=== PATIENT | male | born 1955 | race Caucasian/White ===

== ENCOUNTER 2021-10-05 10:58 | Emergency (ER) | payer OTHER, SELFPAY ==
[2021-10-05] VITALS (21 sets, daily range): BP systolic 129–183; BP diastolic 67–115; PULSE 59–75; RESP 13–23; TEMP 36.6; O2SAT 98–100; BMI 27.6
--- NOTE | 2021-10-05 11:29 | DI.MRI.S_ITS ---
PROCEDURE: MR HEAD/BRAIN WO/W CON INDICATIONS: acute vertigo TECHNIQUE: Noncontrast axial T1 spin echo, axial T2 fast spin echo, sagittal and axial FLAIR, coronal T2 fast spin echo, axial gradient echo, axial diffusion and ADC through the brain. After the administration of contrast, axial and coronal 3D VIBE or T1 spin echo with fat saturation through the brain. COMPARISON: None. FINDINGS: Image quality: Excellent. CSF Spaces: Basal cisterns are patent. No extra-axial fluid collections. Ventricles are normal in size and shape. Brain: No midline shift. No intracranial bleeds or masses. No abnormal intracranial enhancement. The brainstem appears normal. Diffusion-weighted images demonstrate no acute ischemic insults. No chronic ischemic insults. Normal intravascular flow voids are present. Skull and face: Calvarial marrow is normal in signal. Orbits appear normal. Sinuses: Sinuses demonstrate mucous retention cyst versus polyp in the right maxillary sinus. IMPRESSION: 1. No acute intracranial process. Dictated by: Mechelle Ortiz M.D. on 10/05/2021 at 16:54 Approved by: Mechelle Ortiz M.D. on 10/05/2021 at 16:55
--- NOTE | 2021-10-05 11:32 | PC.NURSE ---
Pt reports an episode of dizziness while chain sawing this morning. He reports being unable to stand up then being nauseated and vomiting. Pt denies chest pain, SOB, recent illness, or change in medication. Pt reports similar episode 4 years ago due to hyperthyroidism. States, laying still makes it a bit better, movement makes is worse.
[2021-10-05 11:36] LABS: Add Manual Diff / Slide Review NO; Basophils Absolute Auto 0 /uL (0-100); Basophils Percent Auto 0.3 % (0-2); Eosinophils Absolute Auto 100 /uL (0-450); Eosinophils Percent Auto 1.1 % (2-4); Hematocrit 45.3 % (41-53); Hemoglobin 15.4 g/dL (13.5-17.5); Lymphocytes Absolute Auto 1600 /uL (1100-4500); Lymphocytes Percent Auto 24.4 % (25-40); Mean Corpuscular Hemoglobin 30.9 PG (26-34); Monocytes Absolute Auto 700 /uL (0-900); Neutrophils Absolute Auto 4100 /uL (1500-7000); Neutrophils Percent Auto 63.2 % (50-75); Platelet Count 254 X10^3/uL (150-400); Red Blood Cell Count 4.98 X10^6/uL (4.5-5.9); Red Cell Distribution Width 13.4 % (11.6-14.8); White Blood Cell Count 6.5 X10^3/uL (4.5-11.0)
--- NOTE | 2021-10-05 11:37 | ED_ITS ---
HPI - General Adult General Chief complaint: Dizziness Stated complaint: Sudden onset of dizziness Time Seen by Provider: 10/05/21 11:10 Source: patient, family and EMS Mode of arrival: EMS History of Present Illness HPI narrative: 65-year-old gentleman with a history of hyperlipidemia no hypertension who was outside today beginning to chain saw logs had just started the process when he stood up and had the acute onset of vertigo significant enough that he felt that he was going to fall. He had an episode of emesis and did feel better but still complaining of severe vertigo. He notes that 4 years ago he had a diagnosis of thyroiditis and was diagnosed with vertigo and nausea was hyperthyroid and is now hypothyroid on thyroid replacement. Describes minimal dizziness with head movement certainly not having nystagmus or symptoms consistent with benign positional vertigo. He describes ?jumpy? vision but not actually decreased. Complains of mild diaphoresis but no chest pain, orthopnea, dyspnea. He was positive for COVID 2 months ago and his was positive for COVID about 2 weeks ago. He has no significant complaints persisting from that. He notes occasionally he wakes up with a irritated throat that goes away rather quickly and he has attributed that to allergies. Reports intermittent episodes of chronic diarrhea for a number of years that has not gotten particularly worse. Related Data Home Medications Medication Instructions Recorded Confirmed pitavastatin calcium [Livalo] PO 07/13/18 07/13/18 Previous Rx's Medication Instructions Recorded amoxicillin 500 mg capsule 500 mg PO BID #20 caps 07/13/18 Allergies Allergy/AdvReac Type Severity Reaction Status Date / Time No Known Drug Allergies Allergy Verified 07/13/18 17:43 Review of Systems Review of Systems Narrative: Remainder of complete review of systems is otherwise unremarkable except for that included in the HPI. Patient History Medical History (Updated 10/05/21 @ 18:08 by Nikki Trevino MD) Hyperlipidemia Thyroiditis Social History Smoking Status: Never smoker Smoking Status: Never smoker alcohol intake frequency: 0-2 drinks per day Substance Use Type: does not use Exam Initial Vital Signs Initial Vital Signs: Vital Signs Pulse Rate 66 10/05/21 11:02 Pulse Oximetry 98 10/05/21 11:02 General: Healthy appearing, mildly diaphoretic but otherwise in no acute distress. Able to give a complete and coherent history. Well-nourished well- developed HEENT: Moist mucous membranes, normal sclera with reactive pupils, no nystagmus with positional changes. Tympanic membranes are pearly catherine bilaterally Neck: No JVD, supple, no cervical adenopathy Respiratory: Lungs are clear to auscultation, no wheezing no rales no rhonchi. Full and symmetrical air movement Cardiac: Regular rate and rhythm no murmurs no bruits Abdomen: Soft, nontender, good bowel tones, no flank pain Skin: Warm and dry, no rashes Neurologic: Grossly neurologically intact with no obvious asymmetries or abnormalities. Reports of vertigo when sitting up, again no nystagmus.= No tinnitus. NIH=0 Extremities: No trauma, well perfused Psych: Cooperative, appropriate insight and affect Course Orders Ordered: ED Orders 10/05/21 11:00 Complete Blood Count AUTO DIFF Stat Comprehensive Metabolic Panel Stat Troponin I Stat 10/05/21 11:29 MR head/brain wo/w con Stat Discontinued Medications Acetaminophen (Acetaminophen 325 Mg Tablet) 975 mg PO NOW ONE Stop: 10/05/21 13:19 Last Admin: 10/05/21 13:41 Dose: 975 mg Documented By: SB Diphenhydramine HCl (Diphenhydramine 50 Mg/Ml Vial) 25 mg IV NOW ONE Stop: 10/05/21 13:19 Last Admin: 10/05/21 13:42 Dose: 25 mg Documented By: SB Metoclopramide HCl (Metoclopramide 10 Mg/2 Ml Inj) 10 mg IV NOW ONE Stop: 10/05/21 13:19 Last Admin: 10/05/21 13:42 Dose: 10 mg Documented By: SB Ondansetron HCl (Ondansetron 4 Mg/2 Ml Inj) 4 mg IV NOW ONE Stop: 10/05/21 11:35 Last Admin: 10/05/21 11:38 Dose: 4 mg Documented By: SB Vital Signs Vital signs: Vital Signs - 8 hr 10/05/21 11:07 10/05/21 11:02 10/05/21 11:03 Temperature 97.8 F Pulse Rate 68 66 Respiratory Rate 20 Blood Pressure 170/97 H 170/92 H Pulse Oximetry 99 98 Oxygen Delivery Method Room Air 10/05/21 11:03 10/05/21 11:06 10/05/21 11:06 Temperature Pulse Rate 63 63 Respiratory Rate Blood Pressure 167/99 H Pulse Oximetry 98 Oxygen Delivery Method 10/05/21 11:12 10/05/21 11:12 10/05/21 11:30 Temperature Pulse Rate 64 59 L Respiratory Rate 17 16 Blood Pressure 183/98 H Pulse Oximetry 99 99 Oxygen Delivery Method 10/05/21 11:31 10/05/21 11:31 10/05/21 12:00 Temperature Pulse Rate 59 L Respiratory Rate 15 Blood Pressure 148/79 H 160/79 H Pulse Oximetry 99 Oxygen Delivery Method 10/05/21 12:00 10/05/21 12:30 10/05/21 12:31 Temperature Pulse Rate 59 L 62 Respiratory Rate 17 13 Blood Pressure 150/67 H Pulse Oximetry 99 98 Oxygen Delivery Method Room Air 10/05/21 12:31 10/05/21 13:00 10/05/21 13:00 Temperature Pulse Rate 59 L 67 Respiratory Rate 13 19 Blood Pressure 163/79 H Pulse Oximetry 99 100 Oxygen Delivery Method 10/05/21 13:30 10/05/21 13:30 10/05/21 14:00 Temperature Pulse Rate 63 Respiratory Rate 16 Blood Pressure 158/80 H 159/115 H Pulse Oximetry 99 Oxygen Delivery Method 10/05/21 14:00 10/05/21 14:01 10/05/21 14:01 Temperature Pulse Rate 75 73 Respiratory Rate Blood Pressure 159/115 H Pulse Oximetry 99 99 Oxygen Delivery Method 10/05/21 14:09 10/05/21 14:09 10/05/21 14:30 Temperature Pulse Rate 69 Respiratory Rate 23 Blood Pressure 149/84 H 151/72 H Pulse Oximetry 99 Oxygen Delivery Method 10/05/21 14:30 10/05/21 15:00 10/05/21 15:00 Temperature Pulse Rate 63 61 Respiratory Rate 19 13 Blood Pressure 139/68 Pulse Oximetry 99 99 Oxygen Delivery Method 10/05/21 15:30 10/05/21 15:30 10/05/21 16:00 Temperature Pulse Rate 60 68 Respiratory Rate 13 19 Blood Pressure 129/70 Pulse Oximetry 99 98 Oxygen Delivery Method 10/05/21 16:01 10/05/21 16:01 10/05/21 18:15 Temperature Pulse Rate 67 60 Respiratory Rate 17 Blood Pressure 158/70 H 175/86 H Pulse Oximetry 98 99 Oxygen Delivery Method Room Air Medical Decision Making Lab Data Result diagrams: 10/05/21 11:00 10/05/21 11:00 Labs: Lab Results 10/05/21 10/05/21 Range/Units 11:00 11:00 WBC 6.5 (4.5-11.0) X10^3/uL RBC 4.98 (4.5-5.9) X10^6/uL Hgb 15.4 (13.5-17.5) g/dL Hct 45.3 (41-53) % MCV 91.0 (80-100) fL MCH 30.9 (26-34) PG MCHC 34.0 (30-36) % RDW 13.4 (11.6-14.8) % Plt Count 254 (150-400) X10^3/uL Neut % (Auto) 63.2 (50-75) % Lymph % (Auto) 24.4 L (25-40) % [place] % (Auto) 11.0 (3-14) % Eos % (Auto) 1.1 L (2-4) % Baso % (Auto) 0.3 (0-2) % Neut # (Auto) 4100 (4714-4062) /uL Lymph # (Auto) 1600 (5902-9281) /uL [place] # (Auto) 700 (0-900) /uL Eos # (Auto) 100 (0-450) /uL Baso # (Auto) 0 (0-100) /uL Sodium 141 (137-145) mmol/L Potassium 4.2 (3.4-5.1) mmol/L Chloride 104 (98-107) mmol/L Carbon Dioxide 28 (22-32) mmol/L BUN 21 H (9-20) mg/dL Creatinine 0.94 (0.66-1.25) mg/dL Estimated GFR > 60 (>60) mL/min BUN/Creatinine Ratio 22.3 H (6-22) Glucose 147 H (80-110) mg/dL Calcium 9.8 (8.4-10.2) mg/dL Total Bilirubin 0.6 (0.2-1.3) mg/dL AST 45 (17-59) IU/L ALT 39 (<50) IU/L Alkaline Phosphatase 50 (38-126) U/L Troponin I < 0.012 (0.01-0.034) ng/mL Total Protein 8.4 H (6.3-8.2) g/dL Albumin 4.8 (3.5-5.0) g/dL Globulin 3.6 (1.7-4.1) g/dL Albumin/Globulin Ratio 1.3 (1.0-2.8) Imaging Data MRI brain: Radiologist's Impression: FINDINGS:? Image quality:? Excellent.? ? CSF Spaces:? Basal cisterns are patent.? No extra-axial fluid collections.? Ventricles are normal in size and shape.? ? Brain:? No midline shift.? No intracranial bleeds or masses.? No abnormal intracranial enhancement.? The brainstem appears normal.? Diffusion-weighted images demonstrate no acute ischemic insults.? No chronic ischemic insults.? Normal intravascular flow voids are present.? ? Skull and face:? Calvarial marrow is normal in signal.? Orbits appear normal.? ? Sinuses:? Sinuses demonstrate mucous retention cyst versus polyp in the right maxillary sinus. ? IMPRESSION:? ? 1. No acute intracranial process. ? ? Dictated by: Mechelle Ortiz M.D. on 10/05/2021 at 16:54? ?? ECG Data Interpretation: Sinus rhythm at a rate of 63 Normal intervals, normal axis No acute ischemic changes MDM Narrative Medical decision making narrative: 65-year-old gentleman with acute onset severe vertigo to the point he had difficulty standing. Initial lab workup is reassuring with no evidence of acute coronary syndrome or electrolyte abnormalities. There is still a concern for posterior distribution stroke and an MRI has been ordered. This is scheduled for 530 this evening. In the meantime he is complaining that his headache is getting slightly worse. Will give him Tylenol, IV Reglan IV Benadryl and re-evaluate. He is updated with all findings and aware of timing for MRI. 6pm patient's headache has resolved. His MRI is reassuring. All of this is reviewed with him. At this point I do not have any life-threatening explanation to explain the acute vertigo and headache earlier today. I did recommend that he consider having large glass of water prior to outside activity. Reviewed with him signs and symptoms of stroke when to return to the emergency department, reassurance is given and he is safe for home discharge Discharge Plan Departure Patient Disposition: Home Clinical Impression: Vertigo, Headache Instructions: JULIANNE for Vertigo Activity Restrictions/Additional Instructions: Thank you for coming in today Your blood work was very reassuring. We did end up doing an MRI of your brain and it too was reassuring. There is no evidence of stroke or blood flow abnormalities to the cerebellum, the back part of your brain that can cause acute dizziness. I suspect that this may have been related to mild dehydration associated with the activity outside. At this time, I am quite reassured, there is no life-threatening explanation for your symptoms and her symptoms seem to be improved. It is safe for you to go home If you find that you are getting worse or develop any new symptoms, please feel free to return to the emergency department for further evaluation. Prescriptions: No Action pitavastatin calcium PO amoxicillin 500 mg capsule 500 mg PO BID Qty: 20 0RF Referrals: Bee Murphy PA-C [Primary Care Provider] - Visit Report Forms: Patient Portal/API
[2021-10-05] MEDS: ONDANSETRON 4 MG/2 ML INJ IV (11:38)
[2021-10-05 11:42] LABS: Alanine Aminotransferase 39 IU/L (<50); Albumin 4.8 g/dL (3.5-5.0); Albumin Globulin Ratio 1.3 (1.0-2.8); Alkaline Phosphatase 50 U/L (38-126); Aspartate Aminotransferase 45 IU/L (17-59); BUN Creatinine Ratio 22.3 (6-22); Bilirubin Total 0.6 mg/dL (0.2-1.3); Blood Urea Nitrogen 21 mg/dL (9-20); Calcium 9.8 mg/dL (8.4-10.2); Carbon Dioxide 28 mmol/L (22-32); Chloride 104 mmol/L (98-107); Estimated Glomerular Filt Rate > 60 mL/min (>60); Globulin 3.6 g/dL (1.7-4.1); Glucose 147 mg/dL (80-110); HEMOLYSIS < 15 (0-50); Potassium 4.2 mmol/L (3.4-5.1); Sodium 141 mmol/L (137-145); Total Protein 8.4 g/dL (6.3-8.2)
[2021-10-05 11:53] LABS: Troponin I < 0.012 ng/mL (0.01-0.034)
[2021-10-05] MEDS: ACETAMINOPHEN 325 MG TABLET 975 MG PO (13:41)
[2021-10-05] MEDS: METOCLOPRAMIDE 10 MG/2 ML INJ IV (13:42)
[2021-10-05] MEDS: diphenhydrAMINE 50 MG/ML VIAL 25 MG IV (13:42)
== END 2021-10-05 18:16 | disposition home or self-care (01) ==
PROVIDERS: Emergency Provider Emergency Medicine; PCP Physician Assistant
DX: R42 Dizziness and giddiness (principal); R51.9 Headache, unspecified; Z86.16 Personal history of COVID-19
CPT/HCPCS: 70553; 80053; 84484; 85025; 93005; 93010; 96374; 96375; 99284; J1200; J2405; J2765

== ENCOUNTER 2023-09-30 11:08 | Emergency (ER) | payer MEDICARE, OTHER, SELFPAY ==
[2023-09-30 11:18] VITALS: BP 178/88; PULSE 74; RESP 20; TEMP 36.7; O2SAT 97; BMI 27.1
--- NOTE | 2023-09-30 13:10 | ED_ITS ---
HPI - Extremity Problem General Chief complaint: Extremity Problem,Nontraumatic Stated complaint: Right Arm swelling, Time Seen by Provider: 09/30/23 12:56 Source: patient Mode of arrival: Ambulatory History of Present Illness HPI Narrative: 67-year-old male with history of hypertension, hyperlipidemia and gout of his right hand for the past 10 days or so. He had been seen and evaluated by his primary care provider and started on colchicine and a course of steroids and had little to no improvement. He subsequently followed up at an urgent care at [facility] and had an x-ray that showed no significant findings. He has continued pain and swelling in his right hand but also is now having pain, redness and swelling of his right elbow. This is all in the absence of any injury or overuse. He denies fever or chills nor nausea, vomiting or diarrhea. He denies any numbness or tingling. He denies any history of clot, recent travel or other Related Data Home Medications Medication Instructions Recorded Confirmed pitavastatin calcium [Livalo] PO 07/13/18 07/13/18 Previous Rx's Medication Instructions Recorded amoxicillin 500 mg capsule 500 mg PO BID #20 caps 07/13/18 doxycycline hyclate 100 mg tablet 100 mg PO BID #20 tabs 09/30/23 Allergies Allergy/AdvReac Type Severity Reaction Status Date / Time No Known Drug Allergies Allergy Verified 09/30/23 11:25 Review of Systems Review of Systems Narrative: GENERAL: Denies chills, fatigue, malaise, fever, sweats. HEENT: Denies sinus pain, ear pain, sore throat, difficulty swallowing, dizziness. RESPIRATORY: Denies dyspnea, cough, wheezing, hemoptysis, sputum. CARDIOVASCULAR: Denies chest pain, palpitations, orthopnea, edema, GASTROINTESTINAL: Denies nausea, vomiting, abdominal pain, diarrhea, constipation, melena. : Denies dysuria, frequency, incontinence, hematuria, urinary retention. MUSCULOSKELETAL: See HPI SKIN: See HPI NEUROLOGIC: Denies weakness, headache, numbness, change in speech, confusion, seizures, incoordination. PSYCHIATRIC: No concerning psychosocial issues. 12 point review of systems is negative except for those stated above Patient History Medical History Hyperlipidemia Thyroiditis Social History (Reviewed 06/09/24 @ 13:39 by NEGRO Hinds Smoking Status: Never smoker Smoking Status: Never smoker alcohol intake frequency: 0-2 drinks per day Substance Use Type: does not use Exam Narrative Exam Narrative: GENERAL: [67] year old patient appears stated age. Well-developed patient, in mild distress. HEAD: Atraumatic. Normocephalic. EYES: Pupils equal round and reactive. Extraocular motions intact. No scleral icterus. No injection or drainage. ENT: Nose without bleeding, purulent drainage. Throat without erythema, tonsillar hypertrophy or exudate. Airway patent. NECK: Trachea midline. Non tender CARDIOVASCULAR: Regular rate and rhythm without murmurs, gallops, or rubs. RESPIRATORY: Clear to auscultation. Breath sounds equal bilaterally. No wheezes, rales, or rhonchi. GASTROINTESTINAL: Abdomen soft, non-tender, nondistended. EXTREMITIES: Dorsum of right hand with some redness erythema, warmth and swelling, cap refill and sensation intact, no fluctuance or induration, no pain with palpation of palmar surface. Full range of motion at the wrist. Forearm compartments are soft and free of any pain, redness or swelling, no lymphangitis is noted, at the elbow overlying the olecranon there is erythema and warmth with pain on range of motion, this erythema is not circumferential. He does have relatively decent range of motion suggesting septic arthritis extremely unlikely. No lymphangitis from this point, no axillary nodes noted. BACK: Nontender without deformity or crepitance. No flank tenderness. NEURO: AOx3. SKIN: No rash or erythema of visible areas Initial Vital Signs Initial Vital Signs: Vital Signs Temperature 98.1 F 09/30/23 11:18 Pulse Rate 74 09/30/23 11:18 Respiratory Rate 20 09/30/23 11:18 Blood Pressure 178/88 H 09/30/23 11:18 Pulse Oximetry 97 09/30/23 11:18 Oxygen Delivery Method Room Air 09/30/23 11:18 Course Orders Ordered: ED Orders 09/30/23 13:25 US periph venous up extrem rt Stat 09/30/23 13:44 C-Reactive Protein Quant Stat Complete Blood Count AUTO DIFF Stat Comprehensive Metabolic Panel Stat Erythrocyte Sedimentation Rate Stat Uric Acid Stat Discontinued Medications Sodium Chloride (Normal Saline 0.9%) 500 mls @ 1,000 mls/hr IV BOLUS ONE Stop: 09/30/23 13:54 Last Infusion: 09/30/23 14:30 Dose: Infused Documented By: Admin: 09/30/23 13:53 Dose: 1,000 mls/hr Documented By: IGOR Doxycycline Hyclate 100 mg/ (Sodium Chloride) 100 mls @ 100 mls/hr IV NOW ONE Stop: 09/30/23 14:58 Last Admin: 09/30/23 15:11 Dose: 100 mls/hr Documented By: IGOR Ketorolac Tromethamine (Ketorolac 30 Mg/Ml Vial) 15 mg IV NOW ONE Stop: 09/30/23 13:26 Last Admin: 09/30/23 13:50 Dose: 15 mg Documented By: IGOR Vital Signs Vital signs: Vital Signs - 8 hr 09/30/23 11:18 Temperature 98.1 F Pulse Rate 74 Respiratory Rate 20 Blood Pressure 178/88 H Pulse Oximetry 97 Oxygen Delivery Method Room Air MDM - Extremity (Nontraumatic) Lab Data 09/30/23 13:44 09/30/23 13:44 Labs: Lab Results 09/30/23 Range/Units 13:44 WBC 11.3 H (4.5-11.0) X10^3/uL RBC 4.88 (4.5-5.9) X10^6/uL Hgb 15.2 (13.5-17.5) g/dL Hct 45.2 (41-53) % MCV 92.5 (80-100) fL MCH 31.1 (26-34) PG MCHC 33.7 (30-36) % RDW 13.9 (11.6-14.8) % Plt Count 258 (150-400) X10^3/uL Neut % (Auto) 78.4 H (50-75) % Lymph % (Auto) 10.5 L (25-40) % [place] % (Auto) 9.5 (3-14) % Eos % (Auto) 1.1 L (2-4) % Baso % (Auto) 0.5 (0-2) % Neut # (Auto) 8800 H (2034-5317) /uL Lymph # (Auto) 1200 (7104-5554) /uL [place] # (Auto) 1100 H (0-900) /uL Eos # (Auto) 100 (0-450) /uL Baso # (Auto) 100 (0-100) /uL ESR 29 H (0-15) MM/HR Sodium 140 (137-145) mmol/L Potassium 4.2 (3.4-5.1) mmol/L Chloride 106 (98-107) mmol/L Carbon Dioxide 28 (22-32) mmol/L BUN 22 H (9-20) mg/dL Creatinine 0.92 (0.66-1.25) mg/dL Estimated GFR > 60 (>60) mL/min BUN/Creatinine Ratio 23.9 H (6-22) Glucose 168 H (80-110) mg/dL Uric Acid 6.2 (3.5-8.5) mg/dL Calcium 9.4 (8.4-10.2) mg/dL Total Bilirubin 0.5 (0.2-1.3) mg/dL AST 32 (17-59) IU/L ALT 27 (<50) IU/L Alkaline Phosphatase 57 (38-126) U/L C-Reactive Protein 6.8 H (<1.0) mg/dL Total Protein 7.7 (6.3-8.2) g/dL Albumin 4.3 (3.5-5.0) g/dL Globulin 3.4 (1.7-4.1) g/dL Albumin/Globulin Ratio 1.3 (1.0-2.8) MDM Narrative Medical decision making narrative: CC: Right hand pain, redness, swelling and right elbow pain, redness and swelling Complicating co-morbidities: age, history of gout Data collected from: Patient Medical records reviewed: Prior notes reviewed in our EMR Differential considered, but not limited to: Gouty arthritis versus cellulitis versus DVT versus septic arthritis versus bursitis versus other Exam documented above, pertinent findings include: Right hand pain, redness and swelling in the absence of injury, no fluctuance or induration, no palmar pain to suggest deep space infection. Right elbow with pain, redness and some swelling overlying the olecranon, this is not circumferential and patient has intact range of motion with flexion and extension as well as pronation and supination Lab Test results independently reviewed as above. Pertinent findings: Leukocytosis with relative left shift, inflammatory markers elevated. Uric acid in normal range Imaging studies independently reviewed: Ultrasound shows no evidence of DVT, there is a loose fluid collection over the elbow, clinically there is no fluctuation or induration, no indication that incision and drainage is indicated. Treatments: IV fluids, Toradol and doxycycline Re-evaluations: Patient feeling quite well and ready for discharge Discussion: Patient with right hand and elbow pain, swelling and redness in the absence of injury. He does have a history of gout and had been treated for upwards of a week with colchicine without any improvement, historically this provides near immediate resolution of symptoms for him. Other diagnoses considered including cellulitis versus DVT, thankfully ultrasound obtained and shows no evidence of clot. Patient started on antibiotics here and prescription sent to his pharmacy of choice. Return precautions discussed and patient encouraged to follow closely with his primary care office. Disposition: see below, along with detailed discharge instructions that have been reviewed with patient as well as indications for ED re-evaluation and additional outpatient follow up Discharge Plan Departure Patient Disposition: Home Clinical Impression: Cellulitis of hand, right, Cellulitis of right elbow Instructions: DI for Cellulitis -- Adult Activity Restrictions/Additional Instructions: *You have been diagnosed with [Right hand and elbow cellulitis ] *What to do: *Please continue to take your regular medications as directed. [x ] New medication prescriptions sent to your pharmacy: [ [facility]) [ ] New medication written as a paper prescription [ ] No new medications given *Please follow up with your primary care provider in 2-3 days, call for an appointment. Let them know you were seen in the Emergency Department and that we ask that you be seen in follow up. We will electronically transmit a record of today's note if your PCP is in our system *If you do not have a primary care provider please contact the [facility] Resource line at [phone]. They will ask some questions about your medical history and help get you set up with a doctor in the community. *Return to Emergency Department if you should have any new, worsening or concerning symptoms, such as [fever greater than 101 F, shaking chills, worsening pain, persistent vomiting or other bothersome symptoms] Prescriptions: New doxycycline hyclate 100 mg tablet 100 mg PO BID Qty: 20 0RF No Action pitavastatin calcium PO amoxicillin 500 mg capsule 500 mg PO BID Qty: 20 0RF Stand Alone Forms: Patient Portal/API
--- NOTE | 2023-09-30 13:25 | DI.US.S_ITS ---
PROCEDURE: US PERIPH VENOUS UP EXTREM RT INDICATIONS: pain, swelling, redness. No injury TECHNIQUE: Real-time imaging, as well as color and pulse Doppler interrogation, was performed of the upper extremity deep veins from the inferior neck to the antecubital fossa. COMPARISON: [facility], CR, XR ELBOW 3+ VIEWS RIGHT, 09/25/2023, 15:45. FINDINGS: The internal jugular vein, visualized portions of the subclavian vein, axillary, and brachial veins are free of intraluminal thrombus. Where physically possible, the veins are normally compressible. Color and pulse Doppler demonstrate normal intraluminal flow, with expected phasicity and pulsatility. Additional scanning of the cephalic and basilic veins of the superficial system demonstrates normal compressibility, without thrombus. Inferior to the right elbow, there is a focus complex fluid with internal debris measuring 10 x 11 x 5 mm. No abnormal vascularity can be seen. There is edema seen at the level of the hand, without abnormal vascularity. IMPRESSION: No findings of upper extremity deep venous thrombosis can be seen. Complex fluid seen inferior to the elbow, measuring up to 11 mm, which may be related to a hematoma. No abnormal vascularity can be seen. Hand soft tissue edema can be seen. Dictated by: Kendrick Royal M.D. on 09/30/2023 at 14:16 Approved by: Kendrick Royal M.D. on 09/30/2023 at 14:17
[2023-09-30] MEDS: KETOROLAC 30 MG/ML VIAL 15 MG IV (13:50)
[2023-09-30] MEDS: SODIUM CHLORIDE 0.9% 500 ML 1000 ML IV (13:53)
[2023-09-30 14:01] LABS: Add Manual Diff / Slide Review NO; Basophils Absolute Auto 100 /uL (0-100); Basophils Percent Auto 0.5 % (0-2); Eosinophils Absolute Auto 100 /uL (0-450); Eosinophils Percent Auto 1.1 % (2-4); Hematocrit 45.2 % (41-53); Hemoglobin 15.2 g/dL (13.5-17.5); Lymphocytes Absolute Auto 1200 /uL (1100-4500); Lymphocytes Percent Auto 10.5 % (25-40); Mean Corpuscular HGB Conc 33.7 % (30-36); Mean Corpuscular Hemoglobin 31.1 PG (26-34); Mean Corpuscular Volume 92.5 fL (80-100); Monocytes Absolute Auto 1100 /uL (0-900); Monocytes Percent Auto 9.5 % (3-14); Neutrophils Absolute Auto 8800 /uL (1500-7000); Neutrophils Percent Auto 78.4 % (50-75); Platelet Count 258 X10^3/uL (150-400); Red Blood Cell Count 4.88 X10^6/uL (4.5-5.9); Red Cell Distribution Width 13.9 % (11.6-14.8); White Blood Cell Count 11.3 X10^3/uL (4.5-11.0)
[2023-09-30 14:11] LABS: Uric Acid 6.2 mg/dL (3.5-8.5)
[2023-09-30 14:13] LABS: Alanine Aminotransferase 27 IU/L (<50); Albumin 4.3 g/dL (3.5-5.0); Albumin Globulin Ratio 1.3 (1.0-2.8); Alkaline Phosphatase 57 U/L (38-126); Aspartate Aminotransferase 32 IU/L (17-59); BUN Creatinine Ratio 23.9 (6-22); Bilirubin Total 0.5 mg/dL (0.2-1.3); Blood Urea Nitrogen 22 mg/dL (9-20); C-Reactive Protein Quant 6.8 mg/dL (<1.0); Calcium 9.4 mg/dL (8.4-10.2); Carbon Dioxide 28 mmol/L (22-32); Chloride 106 mmol/L (98-107); Estimated Glomerular Filt Rate > 60 mL/min (>60); Globulin 3.4 g/dL (1.7-4.1); Glucose 168 mg/dL (80-110); HEMOLYSIS 17 (0-50); Potassium 4.2 mmol/L (3.4-5.1); Sodium 140 mmol/L (137-145); Total Protein 7.7 g/dL (6.3-8.2)
[2023-09-30 14:39] LABS: Erythrocyte Sedimentation Rate 29 MM/HR (0-15)
[2023-09-30] MEDS: DOXYCYCLINE 100 MG in SODIUM CHLORIDE 0.9% 100 ML IV (15:11)
[2023-09-30 16:18] VITALS: BP 166/96; PULSE 72; RESP 18; O2SAT 98
== END 2023-09-30 16:20 | disposition home or self-care (01) ==
PROVIDERS: Emergency Medicine; Emergency Provider Emergency Medicine
DX: L03.113 Cellulitis of right upper limb (principal)
CPT/HCPCS: 36415; 80053; 84550; 85025; 85651; 86140; 93971; 96365; 96375; 99284; J1885

== ENCOUNTER 2025-01-15 09:45 | Outpatient (RCR) | payer MEDICARE, OTHER, SELFPAY ==
--- NOTE | 2024-11-25 18:33 | PT.OPPOC ---
Physical, Occupational & Speech Therapy At [facility] Current Diagnoses Other chronic pain (11/25/24) Low back pain, unspecified (11/25/24) Visit Care Team Role Provider Type Jitendra Chaney DO Attending Provider Non-Staff Primary Care Provider Referring Provider Specialty: Internal Medicine Address: [address] [place] [address], [phone] Email: Plan Of Care PT OP: Lower Back/Lower Extremity Start: 11/25/24 10:13 Freq: Status: Active Protocol: Document 11/25/24 13:48 [facility] (Rec: 11/25/24 14:35 [facility] [id number]) Out-Patient Physical Therapy Visit Information Visit Information Visit Type Initial Evaluation Visit Start Time 13:49 Visit Stop Time 14:32 Visit Number 1 Number of NEURODIAGNOSTIC TECHNOLOGIST Visits 0 Current Condition History of Current Condition Onset Date years worse w/LE pain; at least a month Current Complaints L LB and LLE pain History of Current Hx of L LB pain for years. 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 It just all of a sudden starts hurting then goes away typically. this time it is a combo of L LB, L hip, lat leg and garcia and foot goes numb. sometimes all of it at the same time and other times it is just a few of the symptoms. Typically likes to play tennis and hike and this limits his activity. Still does activity but it compromises how he can do it . He is doing work arounds for things. Seems random. Thinks may be a pinched nerve. comes on at night and wakes up at night. LBP happened a few times a year and he could get rid of stretching etc. He is daily taking alieve, advil and/or tylenol and they don't seem to help much. heated seats and hot tub help back. Treatment Goals Patient/Caregiver be able to play tennis, do yard work, hike w/o pain, Goals sleep w/o pain Patient Questionnaires Oswestry Low Back Index Oswestry Score 20% OP Gait Assessment Comments Gait Comments dec ant depression LLE, dec stance time LLE , lat lean over LLE w/stance time, dec arm swing Posture Evaluation Enrrique Postural Classification System Enrrique Postural Posterior/Anterior Classifications Vertical Compression 2 Test Elbow Flexion Test 3 Lumbar Protective 2 Mechanism Left AP Lumbar Protective 2 Mechanism Right AP Lumbar Protective 2 Mechanism Left PA Lumbar Protective 1 Mechanism Right PA Comments Posture Comments equal greater trochanters, L iliac crest higher, trunk rotated R, B feet turned out, inc kyphosis, fwd head Lumbar Spine Range of Motion Lumbar Spine Active Percentage Flexion 30 Extension 60 Rotation Left 50 Rotation Right 50 Lateral Flexion Left 40 Lateral Flexion 60 Right Comments mid thigh w/pelvis blocked w/flex, mid garcia w/o-pain in LLE w/flex; pain in leg and back w/ext; pain L w/B SB Special Tests Lumbar Spine Special Tests SLR Test Results positive L Slump Test Results positive L Other Special Tests Special Tests reflexes: achilles 2+ B patellar2+ B Hip Strength Hip Manual Muscle Testing Right Flexion (L2) 4- Good- Extension (S1) 4 Good Abduction 5 Normal Adduction 5 Normal External Rotation 4+ Good+ Internal Rotation 4+ Good+ Left Flexion (L2) 4- Good- Extension (S1) 4 Good Abduction 4+ Good+ Adduction 4 Good External Rotation 4- Good- Internal Rotation 4- Good- Knee Strength Knee Manual Muscle Testing Right Flexion (S2) 4+ Good+ Extension (L3) 5 Normal Left Flexion (S2) 4 Good Extension (L3) 4+ Good+ Ankle/Foot Strength Ankle and Foot Manual Muscle Testing Right Dorsiflexion (L4) 5 Normal Plantarflexion (S1) 5 Normal Comments hx of R toe injury; 20 heel raises Left Dorsiflexion (L4) 5 Normal Plantarflexion (S1) 5 Normal Comments 20 heel rasies but more difficult Therapeutic Exercises Prone Exercises IR/ER Side left Reps/Minutes 10 Manual Therapy Treatment Consent Patient gave verbal Yes consent for manual treatment Joint Mobilizations hip Comments hip on axis IR and ER c/r w/manual facilitation innominate Body Position Prone Comments caudal and IR L c/r Physical Therapy Assessment Rehab Potential Rehabilitation Good Potential Evaluation Complexity Number of Personal 3 or More Factors/ Comorbidities Number of Body 4 or More Systems Impaired Clinical Evolving Presentation at Evaluation Impairments Impairments Activity Tolerance,Balance,Functional Activities, Functional Mobility,Gait,Pain,Posture,ROM,Soft Tissue Mobility,Strength,Transfers Goals strength Short Term Goal (STG Pt will demonstrate independence w/HEP by being able to ) perform with no more than min cues. STG Duration 12/26 Longterm Goal (LTG) pt will score at least 4+/5 on all BLE MMT and at least 3/5 LPM all planes to show improved strength in order to return to have dec pain w/high level activities. LTG Duration 02/22 activity Short Term Goal (STG Pt will be able to sleep through the night w/o inc pain ) in back or leg pain STG Duration 12/26 Electric Motor Controls Assembler Goal (LTG) Pt will be able to hike, play tennis, do yard work and other heavy work w/o back or leg pain greater than 2/10 LTG Duration 02/23 Assessment Summary Assessment Pt presents w/LB w/LLE pain w/L foot occasionally going numb. 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 He would benefit from skilled PT to improve his mobility and return to typical activities w/less pain and greater ease. Physical Therapy Plan Frequency and Duration Frequency of 2x/Week Treatment Duration of 12 treatment (weeks) Plan of Care Start 11/25/24 Date Plan of Care End 02/23/25 Date Therapeutic Interventions Therapeutic Balance Training,Home Exercise Program,Joint Interventions Mobilizations,Manual Therapy,Neuromuscular Re-education ,Patient/Caregiver Education,Self-Care/Home Management, Soft Tissue Mobilization,Taping,Therapeutic Activities, Therapeutic Exercises Modalities Cold Pack/Ice Massage,Electric Stimulation,Hot Packs, Infrared Therapy,Ultrasound Next Visit Focus/Plan Next Note Type Treatment Note Next Visit Plan pelvis work, hip mobs, manual to back and n tension, review exercise and give further stretches and core, sleep position Plan of Care Dates Plan of Care Start Date 11/25/24 Plan of Care End Date 02/23/25 Electronically Signed by: Sabrina Kimble, PT 11/26/24 0267 If you are in agreement with this Plan of Care, please return a signed and dated copy. I have reviewed this Plan of Care and certify that the skilled therapy services above are required to meet the patient?s needs. Physician Signature Date Printed Name and Credentials Clinical Instructor Signature Printed Name and Credentials
--- NOTE | 2024-11-27 11:48 | PT.OTN ---
Current Diagnoses Other chronic pain (11/27/24) Low back pain, unspecified (11/27/24) Physical Therapy Treatment Note PT OP: Lower Back/Lower Extremity Start: 11/25/24 10:13 Freq: Status: Active Protocol: Document 11/27/24 10:37 [facility] (Rec: 11/27/24 11:47 [facility] [id number]) Out-Patient Physical Therapy Visit Information Visit Information Visit Type Treatment Note Visit Note [email or web address] Access Code: [email or web address] Visit Start Time 10:46 Visit Stop Time 11:34 Visit Number 2 Number of CRATER AND PACKER Visits 1 Progress Note Due 12/27/24 OP-PT Subjective Patient Comments Patient Comments Patient reports he felt better post previous session, pain came back and didn't have time to do exercise due to having company. Patient rates L hip pain down L LE 4 -510. Inc stiffness L calf great toe 1.5 cm from wall with knee to wall ROM DF L ankle Therapeutic Exercises Supine Exercises piriformis stretch Supine Exercise Name HEP Reps/Minutes 60 sec L 60 sec X 2 R Comments verbal cues Modified Darren stretch Side bilateral Reps/Minutes 60 sec then AROM knee flexion each LE Comments verbal cues Prone Exercises IR/ER Side left Reps/Minutes See manual Standing Exercises calf stretches Standing Exercise Gastroc and soleus HEP Name Side bilateral Reps/Minutes 60 sec each stretch X 2 Comments verbal and visual cues Manual Therapy Treatment Consent Patient gave verbal Yes consent for manual treatment Soft Tissue Mobilization LS/glute Body Location L Mobilization Type Cross-Friction,Rolling Intensity/Depth Moderate Body Position Sidelying Joint Mobilizations innominate Body Position Prone Comments caudal and IR L and ER AROM ( Pt ed to put pillow under abd area at home) Manual Techniques contract relax into hip IR L Reps/Duration X 2 60 sec holds MET Type MARIE L PI in hooklying L LE in ER Reps/Duration 6 X 6 sec for R AI L PI and pubic shot gun Physical Therapy Assessment Goals strength Short Term Goal (STG Pt will demonstrate independence w/HEP by being able to ) perform with no more than min cues. STG Duration 9/5 [facility] Goal (LTG) pt will score at least 4+/5 on all BLE MMT and at least 3/5 LPM all planes to show improved strength in order to return to have dec pain w/high level activities. LTG Duration 11/2 activity Short Term Goal (STG Pt will be able to sleep through the night w/o inc pain ) in back or leg pain STG Duration 12/26 Fire Safety Manager Goal (LTG) Pt will be able to hike, play tennis, do yard work and other heavy work w/o back or leg pain greater than 2/10 LTG Duration 02/23 Assessment Summary Assessment Derik rates pain 2-3/10 L glute, hip, LE end of session . Increased stiffness bilateral calf muscles impacting gait pattern/positioning of bilateral hips. Physical Therapy Plan Frequency and Duration Frequency of 2x/Week Treatment Duration of 12 treatment (weeks) Plan of Care Start 11/25/24 Date Plan of Care End 02/23/25 Date Next Visit Focus/Plan Next Note Type Treatment Note Next Visit Plan pelvis work, hip mobs, manual to back and n tension, review exercise and give further stretches and core, sleep position
--- NOTE | 2024-12-08 09:05 | PT.OTN ---
Current Diagnoses Other chronic pain (12/08/24) Low back pain, unspecified (12/08/24) Physical Therapy Treatment Note PT OP: Lower Back/Lower Extremity Start: 11/25/24 10:13 Freq: Status: Active Protocol: Document 12/08/24 08:19 [facility] (Rec: 12/08/24 09:05 [facility] [id number]) Out-Patient Physical Therapy Visit Information Visit Information Visit Type Treatment Note Visit Note [email or web address] Access Code: [email or web address] Visit Start Time 08:20 Visit Stop Time 09:00 Visit Number 3 Number of HARBOR POLICE LIEUTENANT Visits 0 Progress Note Due 12/27/24 OP-PT Subjective Patient Comments Patient Comments Notes no change after last session. Still constant pain in LLE. really hard to get dressed in AM d/t pain or even just getting in car. has been compliant w/hep Therapeutic Exercises Supine Exercises isometric Supine Exercise Name SL hip flex w/DF Side bilateral Reps/Minutes 30 sec Comments cues core stretch Supine Exercise Name SL Side bilateral Reps/Minutes 30 sec ea piriformis stretch Supine Exercise Name HEP Side bilateral Reps/Minutes 30 sec ea Comments verbal cues Modified Darren stretch Supine Exercise Name knee to chest w/opp leg over Side left Reps/Minutes 60 sec then AROM knee flexion each LE Comments verbal cues-stopped d/t pain Sidelying Exercises reverse clamshell Side bilateral Reps/Minutes 10 Comments cues no rolling-dec range to avoid garcia pain clamshell Side bilateral Reps/Minutes 10 Comments cues no rolling Manual Therapy Treatment Consent Patient gave verbal Yes consent for manual treatment Soft Tissue Mobilization LS/glute Body Location L ES and QL and cupping; sup glute Mobilization Type Instrument Assisted,Rolling,Sustained Pressure Intensity/Depth Superficial Body Position Sidelying Joint Mobilizations sacrum Comments percussion L caudal hip Comments hip free the ball IR and ER c/r and hip on axis c/r IR innominate Comments L IR c/r-attempted L caudal but painful Physical Therapy Assessment Goals strength Short Term Goal (STG Pt will demonstrate independence w/HEP by being able to ) perform with no more than min cues. STG Duration 9/5 [facility] Goal (LTG) pt will score at least 4+/5 on all BLE MMT and at least 3/5 LPM all planes to show improved strength in order to return to have dec pain w/high level activities. LTG Duration 02/22 activity Short Term Goal (STG Pt will be able to sleep through the night w/o inc pain ) in back or leg pain STG Duration / [facility] Goal (LTG) Pt will be able to hike, play tennis, do yard work and other heavy work w/o back or leg pain greater than 2/10 LTG Duration 02/23 Assessment Summary Assessment Pt had improved hip ir/ER after manual care today. Still has limited ROM overall in L hip and innominate/ sacrum likely related to pain. Most pain w/exercises noted in garcia. Encouraged to stay in smaller comfortable range Physical Therapy Plan Frequency and Duration Frequency of 2x/Week Treatment Duration of 12 treatment (weeks) Plan of Care Start 11/25/24 Date Plan of Care End 02/23/25 Date Next Visit Focus/Plan Next Note Type Treatment Note Next Visit Plan pelvis work, hip mobs, manual to back and n tension, review exercise and advance as able, sleep position training
--- NOTE | 2024-12-10 16:29 | PT.OTN ---
Current Diagnoses Other chronic pain (12/10/24) Low back pain, unspecified (12/10/24) Physical Therapy Treatment Note PT OP: Lower Back/Lower Extremity Start: 11/25/24 10:13 Freq: Status: Active Protocol: Document 12/10/24 14:32 [facility] (Rec: 12/10/24 16:18 [facility] [id number]) Out-Patient Physical Therapy Visit Information Visit Information Visit Type Treatment Note Visit Note [email or web address] Access Code: [email or web address] Visit Start Time 15:27 Visit Stop Time 16:10 Visit Number 4 Number of CHILD LIFE THERAPIST Visits 1 Progress Note Due 12/27/24 OP-PT Subjective Patient Comments Patient Comments Patient reports he is slowly getting better, still having pain LE on fire when trying to sleep. Patient reports difficulty putting socks on. Patient rates pain L LE buttocks to garcia 1-2/10 Therapeutic Exercises Supine Exercises piriformis stretch Supine Exercise Name HEP Side bilateral Reps/Minutes 60 sec X 1 R X 2 L Comments verbal cues Modified Darren stretch Side left Reps/Minutes 60 sec then AROM knee flexion each LE Comments Verbal cues for opp knee to chest Sidelying Exercises reverse clamshell Side bilateral Reps/Minutes 10 Comments cues no rolling-dec range to avoid garcia pain Sitting Exercises bilateral hip IR Sitting Exercise HEP Name Side bilateral Reps/Minutes X15 Comments verbal cues Standing Exercises sit to stand Standing Exercise * post training and set of X 5 reports ant, lateral Name lower L LE Reps/Minutes X5 Comments Pt ed mec sit to stand and self tactile cues for hip hinge* calf stretches Standing Exercise Soleus Name Reps/Minutes trial X 1 then 60 sec X 1 post MWM TC mob Comments verbal cues monitored for area of discomfort Manual Therapy Treatment Consent Patient gave verbal Yes consent for manual treatment Soft Tissue Mobilization illiopsoas Body Location L Mobilization Type Cross-Friction,Rolling Intensity/Depth Moderate Body Position Hooklying LS/glute Body Location glute/piriformis Mobilization Type Cross-Friction,Rolling,Sustained Pressure Intensity/Depth Moderate Body Position Sidelying Joint Mobilizations L ankle Comments MWM TC AP mob X 10 X 3 with lunge position. due to ant lat garcia distal pain with sit to and from stand and soleus stretch Manual Techniques MET Type R AI L PI in hooklying L LE in ER Reps/Duration 6 X 6 sec for R AI L PI and pubic shot gun Physical Therapy Assessment Goals strength Short Term Goal (STG Pt will demonstrate independence w/HEP by being able to ) perform with no more than min cues. STG Duration 9 [facility] Goal (LTG) pt will score at least 4+/5 on all BLE MMT and at least 3/5 LPM all planes to show improved strength in order to return to have dec pain w/high level activities. LTG Duration 02/22 activity Short Term Goal (STG Pt will be able to sleep through the night w/o inc pain ) in back or leg pain STG Duration 12/26 [facility] Goal (LTG) Pt will be able to hike, play tennis, do yard work and other heavy work w/o back or leg pain greater than 2/10 LTG Duration 02/23 Assessment Summary Assessment Patient reports sensation of discomfort lower L LE ant and lat to ankle decreased post TC mob, also dec pain L LE post training to perform sit to stand with hip hinge. Physical Therapy Plan Frequency and Duration Frequency of 2x/Week Treatment Duration of 12 treatment (weeks) Plan of Care Start 11/25/24 Date Plan of Care End 02/23/25 Date Next Visit Focus/Plan Next Note Type Treatment Note Next Visit Plan pelvis work, hip mobs, manual to back and n tension, review exercise and advance as able, sleep position training
--- NOTE | 2024-12-15 12:33 | PT.OTN ---
Current Diagnoses Other chronic pain (12/15/24) Low back pain, unspecified (12/15/24) Physical Therapy Treatment Note PT OP: Lower Back/Lower Extremity Start: 11/25/24 10:13 Freq: Status: Active Protocol: Document 12/15/24 10:45 [facility] (Rec: 12/15/24 12:33 [facility] [id number]) Out-Patient Physical Therapy Visit Information Visit Information Visit Type Treatment Note Visit Note [email or web address] Access Code: [email or web address] Visit Start Time 11:37 Visit Stop Time 12:17 Visit Number 5 Number of CORRECTIONAL CORPORAL Visits 0 Progress Note Due 12/27/24 OP-PT Subjective Patient Comments Patient Comments pt reports he got his MRI results this morning. 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 right now foot is numb and tingling and when he did yard work, it was on fire again. Therapeutic Exercises Sidelying Exercises sideplank Sidelying Exercise forearm and knee lifts Name Side bilateral Reps/Minutes 8 Comments stopped d/t back pain abd Side left Reps/Minutes 5 Comments stopped d/t pain Standing Exercises self release Standing Exercise tennis ball to glutes Name Side left Comments instructed on set up and area to get in glutes hip hke Standing Exercise stopped d/t inc lower leg pain Name Side bilateral Reps/Minutes 10 Comments cues core lat lunge Side bilateral Reps/Minutes 5 Comments attempted but painful abd Side bilateral Equipment Used L1 Reps/Minutes 15 ft ea Comments cues posture and toe position Therapeutic Activity Therapeutic Activity lifiting/bending mechanics Reps/Minutes 12 min Comments 1. hip hinge w/gradual dec use of dowel 2. squat w/ dowel x15, without [id number] back position Manual Therapy Treatment Consent Patient gave verbal Yes consent for manual treatment Joint Mobilizations lumbar Comments distraction L5-S1 s/l c/r; UPA R L4 c/r and downglide L4 L c/r sacrum Comments UPA R seated w/press RLE to ground c/r hip Comments hip abd s/l c/r L; hip abd/ER free the ball ER c/r innominate Comments abd L c/r s/l Physical Therapy Assessment Goals strength Short Term Goal (STG Pt will demonstrate independence w/HEP by being able to ) perform with no more than min cues. STG Duration 9/5 [facility] Goal (LTG) pt will score at least 4+/5 on all BLE MMT and at least 3/5 LPM all planes to show improved strength in order to return to have dec pain w/high level activities. LTG Duration 02/22 activity Short Term Goal (STG Pt will be able to sleep through the night w/o inc pain ) in back or leg pain STG Duration 12/26 [facility] Goal (LTG) Pt will be able to hike, play tennis, do yard work and other heavy work w/o back or leg pain greater than 2/10 LTG Duration 02/23 Assessment Summary Assessment Unable to find a way to get pt to do hip abd w/o causing pain down into lower leg. He does have improved hip abd after manual treatment today. He did well with hip hinge/squat training. Physical Therapy Plan Frequency and Duration Frequency of 2x/Week Treatment Duration of 12 treatment (weeks) Plan of Care Start 11/25/24 Date Plan of Care End 02/23/25 Date Next Visit Focus/Plan Next Note Type Treatment Note Next Visit Plan cont to work on hip and pelvis and lumbar spine, advance exercises as able
--- NOTE | 2024-12-17 18:13 | PT.OPPN ---
Current Diagnoses Other chronic pain (12/17/24) Low back pain, unspecified (12/17/24) Physical Therapy Progress Note PT OP: Lower Back/Lower Extremity Start: 11/25/24 10:13 Freq: Status: Active Protocol: Document 12/17/24 16:14 [facility] (Rec: 12/17/24 18:13 [facility] [id number]) Out-Patient Physical Therapy Visit Information Visit Information Visit Type Progress Note Visit Note [email or web address] Access Code: [email or web address] Visit Start Time 17:05 Visit Stop Time 17:45 Visit Number 6 Number of HEAD CUSTODIAN Visits 0 Progress Note Due 12/27/24 Posture Evaluation [facility] Postural Classification System Elbow Flexion Test 3 Lumbar Protective 2 Mechanism Left AP Lumbar Protective 2 Mechanism Right AP Lumbar Protective 3 Mechanism Left PA Lumbar Protective 2 Mechanism Right PA Hip Strength Hip Manual Muscle Testing Right Flexion (L2) 4+ Good+ Extension (S1) 4+ Good+ Abduction 5 Normal Adduction 5 Normal External Rotation 5 Normal Internal Rotation 5 Normal Left Flexion (L2) 4+ Good+ Extension (S1) 4+ Good+ Abduction 4+ Good+ Adduction 5 Normal External Rotation 4 Good Internal Rotation 4+ Good+ Knee Strength Knee Manual Muscle Testing Right Flexion (S2) 5 Normal Extension (L3) 5 Normal Left Flexion (S2) 5 Normal Extension (L3) 5 Normal Ankle/Foot Strength Ankle and Foot Manual Muscle Testing Right Dorsiflexion (L4) 5 Normal Plantarflexion (S1) 5 Normal Comments hx of R toe injury; 20 heel raises Left Dorsiflexion (L4) 5 Normal Plantarflexion (S1) 5 Normal Comments 20 heel rasies but more difficult Therapeutic Exercises Standing Exercises step up Standing Exercise lat Name Side bilateral Equipment Used 4 in, 6 in Reps/Minutes 10 ea Comments cues for hip hinge lat lunge Side bilateral Reps/Minutes 5 Comments attempted but painful sit to stand Standing Exercise SL sit to stand Name Side bilateral Reps/Minutes 2x10 L; 10 R Comments Cues control Manual Therapy Treatment Consent Patient gave verbal Yes consent for manual treatment Soft Tissue Mobilization Lumbar Body Location L ES & QL Mobilization Type Rolling Intensity/Depth Moderate Body Position Sidelying LS/glute Body Location glute/piriformis L Mobilization Type Rolling,Sustained Pressure Intensity/Depth Moderate Body Position Sidelying Comments w/sciatic n glide Joint Mobilizations lumbar Comments distraction L4-5 c/r post dep Physical Therapy Assessment Goals strength Short Term Goal (STG Pt will demonstrate independence w/HEP by being able to ) perform with no more than min cues. STG Duration achieved advacning as able Usp Goal (LTG) pt will score at least 4+/5 on all BLE MMT and at least 3/5 LPM all planes to show improved strength in order to return to have dec pain w/high level activities. 12/17-improving LTG Duration 11 activity Short Term Goal (STG Pt will be able to sleep through the night w/o inc pain ) in back or leg pain 12/17-wakes up at 4 am now and has to shift around; first thing in the AM still hard STG Duration 9 Usp Goal (LTG) Pt will be able to hike, play tennis, do yard work and other heavy work w/o back or leg pain greater than 2/10 12/17-3 mile hike w/hills and improved pain, yard work - 08/30; hasn't played tennis recently d/t dec movement LTG Duration 02/23 Assessment Summary Assessment Pt making good progress w/PT with some improvement in function and dec pain since starting. He cont to improve with strength but require further core stability training. Cont PT to advance mobility and dec pain. Physical Therapy Plan Frequency and Duration Frequency of 2x/Week Treatment Duration of 12 treatment (weeks) Plan of Care Start 11/25/24 Date Plan of Care End 02/23/25 Date Therapeutic Interventions Therapeutic Balance Training,Home Exercise Program,Joint Interventions Mobilizations,Manual Therapy,Neuromuscular Re-education ,Patient/Caregiver Education,Self-Care/Home Management, Soft Tissue Mobilization,Taping,Therapeutic Activities, Therapeutic Exercises Modalities Cold Pack/Ice Massage,Electric Stimulation,Hot Packs, Infrared Therapy,Ultrasound Next Visit Focus/Plan Next Note Type Treatment Note Next Visit Plan cont to work on hip and pelvis and lumbar spine, advance exercises as able
--- NOTE | 2024-12-26 17:19 | PT.OTN ---
Current Diagnoses Other chronic pain (12/26/24) Low back pain, unspecified (12/26/24) Physical Therapy Treatment Note PT OP: Lower Back/Lower Extremity Start: 11/25/24 10:13 Freq: Status: Active Protocol: Document 12/26/24 16:15 [facility] (Rec: 12/26/24 16:41 [facility] [id number]) Out-Patient Physical Therapy Visit Information Visit Information Visit Type Treatment Note Visit Note [email or web address] Access Code: [email or web address] Visit Start Time 16:18 Visit Stop Time 17:06 Visit Number 7 Number of INTERACTIVE MEDIA DESIGNER Visits 1 Progress Note Due 01/16/25 OP-PT Subjective Patient Comments Patient Comments Patient reports he was sleeping pretty good, felt good yesterday and did yard work, cleaned the [place], drained the hot tub. Patient rates pain 1-2/10 start of session L side of back and glute. Therapeutic Exercises Supine Exercises piriformis stretch Supine Exercise Name HEP Side bilateral Reps/Minutes 60 sec X 1 R X 2 L Comments verbal cues Modified Darren stretch Supine Exercise Name HEP Side bilateral Reps/Minutes 60 sec then AROM knee flexion each LE Comments Verbal cues for opp knee to chest Sitting Exercises bilateral hip IR Side bilateral Reps/Minutes X 15 without and and X 15 with level one band Comments level one band to HEP Standing Exercises prone hip extension Standing Exercise resting on raised mat on 2 pillows Name Side bilateral Reps/Minutes X 10 Comments Verbal and visual cues for position/mvt, additional verbal cues for bracing Glute med isometric Reps/Minutes one minute once a day each LE Comments verbal and visual cues Manual Therapy Treatment Consent Patient gave verbal Yes consent for manual treatment Soft Tissue Mobilization illiopsoas Body Location L Mobilization Type Cross-Friction,Rolling Intensity/Depth Moderate Body Position Hooklying LS/glute Body Location glute/piriformis L Mobilization Type Rolling,Sustained Pressure Intensity/Depth Moderate Body Position Sidelying Manual Techniques MET Type R AI L PI in hooklying L LE in ER Reps/Duration 6 X 6 sec for R AI L PI and pubic shot gun Physical Therapy Assessment Goals strength Short Term Goal (STG Pt will demonstrate independence w/HEP by being able to ) perform with no more than min cues. STG Duration achieved advacning as able Automatic Coil Machine Operator Goal (LTG) pt will score at least 4+/5 on all BLE MMT and at least 3/5 LPM all planes to show improved strength in order to return to have dec pain w/high level activities. 12/17-improving LTG Duration 02/22 activity Short Term Goal (STG Pt will be able to sleep through the night w/o inc pain ) in back or leg pain 12/17-wakes up at 4 am now and has to shift around; first thing in the AM still hard STG Duration 12/26 Intermediate Goal (LTG) Pt will be able to hike, play tennis, do yard work and other heavy work w/o back or leg pain greater than 2/10 12/17-3 mile hike w/hills and improved pain, yard work - 08/30; hasn't played tennis recently d/t dec movement LTG Duration 02/23 Assessment Summary Assessment Patient reports feeling better/less pain end of session . R hip extension very limited even in prone over mat position. Physical Therapy Plan Frequency and Duration Frequency of 2x/Week Treatment Duration of 12 treatment (weeks) Plan of Care Start 11/25/24 Date Plan of Care End 02/23/25 Date Next Visit Focus/Plan Next Note Type Treatment Note Next Visit Plan cont to work on hip and pelvis and lumbar spine, advance exercises as able
--- NOTE | 2024-12-30 16:18 | PT.OTN ---
Current Diagnoses Other chronic pain (12/30/24) Low back pain, unspecified (12/30/24) Physical Therapy Treatment Note PT OP: Lower Back/Lower Extremity Start: 11/25/24 10:13 Freq: Status: Active Protocol: Document 12/30/24 13:53 [facility] (Rec: 12/30/24 15:25 [facility] [id number]) Out-Patient Physical Therapy Visit Information Visit Information Visit Type Treatment Note Visit Note [email or web address] Access Code: [email or web address] Visit Start Time 14:40 Visit Stop Time 15:18 Visit Number 8 Number of ANESTHESIOLOGIST PHYSICIAN Visits 0 Progress Note Due 01/16/25 OP-PT Subjective Patient Comments Patient Comments tingling foot constant, lat leg, Lat hip and LB. sometimes one soemtimes all of them. AM worst. Therapeutic Exercises Standing Exercises clock taps Side bilateral Reps/Minutes 8 ea Comments cues bend knee lunge Standing Exercise fwd walk Name Side bilateral Reps/Minutes 20ftx4 [place] Side bilateral Reps/Minutes 20ft x2 Comments cues bigger steps and coordination sit to stand Standing Exercise SL sit to stand Name Side bilateral Equipment Used 26 in bed Reps/Minutes 10 Comments Cues control Other Exercises cat cow Reps/Minutes 10 Comments cues for coodination of motion-stopped d/t pain lillian pose Other Exercise Name 1. fwd 2. lat Side bilateral Reps/Minutes 30 sec ea Comments cues deep breaths hip abd Other Exercise Name quadruped Side bilateral Reps/Minutes 10 Comments cues neutral spine hip ext Other Exercise Name quadruped Side bilateral Reps/Minutes 15 Comments cues neutral spine Therapeutic Activity Therapeutic Activity sleep Reps/Minutes 8 min Comments edu of use of pillow long ways from pubic bone to foot s/l and set up in supine working on prop of femurs and knees into flex to support LB. LTR and sciatic n glide prior to get out of bed Manual Therapy Treatment Consent Patient gave verbal Yes consent for manual treatment Soft Tissue Mobilization HS Body Location L Mobilization Type Rolling Intensity/Depth Moderate Body Position Hooklying Comments w/active stretch Lumbar Body Location L ES & QL Mobilization Type Rolling Intensity/Depth Moderate Body Position Sidelying Joint Mobilizations lumbar Comments transverse L4-5 c/r ant elevation sacrum Comments caudal s/l Physical Therapy Assessment Goals strength Short Term Goal (STG Pt will demonstrate independence w/HEP by being able to ) perform with no more than min cues. STG Duration achieved advacning as able Senior Care Goal (LTG) pt will score at least 4+/5 on all BLE MMT and at least 3/5 LPM all planes to show improved strength in order to return to have dec pain w/high level activities. 12/17-improving LTG Duration 11 activity Short Term Goal (STG Pt will be able to sleep through the night w/o inc pain ) in back or leg pain 12/17-wakes up at 4 am now and has to shift around; first thing in the AM still hard STG Duration 9 Veneer Stacker Goal (LTG) Pt will be able to hike, play tennis, do yard work and other heavy work w/o back or leg pain greater than 2/10 12/17-3 mile hike w/hills and improved pain, yard work - 08/30; hasn't played tennis recently d/t dec movement LTG Duration 02/23 Assessment Summary Assessment Pt had small amount of pain w/exercises but not signifcant. DId well with edu re: positioning for sleeping and AM exercises. Verbalizes understanding Physical Therapy Plan Frequency and Duration Frequency of 2x/Week Treatment Duration of 12 treatment (weeks) Plan of Care Start 11/25/24 Date Plan of Care End 02/23/25 Date Next Visit Focus/Plan Next Note Type Treatment Note Next Visit Plan cont to work on hip and pelvis and lumbar spine, advance exercises as able
--- NOTE | 2025-01-02 09:46 | PT.OTN ---
Current Diagnoses Other chronic pain (01/02/25) Low back pain, unspecified (01/02/25) Physical Therapy Treatment Note PT OP: Lower Back/Lower Extremity Start: 11/25/24 10:13 Freq: Status: Active Protocol: Document 01/02/25 09:02 [facility] (Rec: 01/02/25 09:50 [facility] [id number]) Out-Patient Physical Therapy Visit Information Visit Information Visit Type Treatment Note Visit Note EDGARD Martinez assisted with ther ex and bed mobillity education while under direct supervision and instruction as needed by NISHA Marie, with permission of pt. Visit Start Time 09:04 Visit Stop Time 09:46 Visit Number 9 Number of COUNT TEAM CLERK Visits 1 Progress Note Due 01/16/25 OP-PT Subjective Patient Comments Patient Comments Pt reports is having pain in low back at night wakes him up when sleeping, is side sleeper and uses pillows between knees for alignment support. He gets up and moves around, takes Tylenol if needed for pain control when needed. He reports stiffness and pain when gets out of bed in am. Therapeutic Exercises Supine Exercises COre Series Supine Exercise Name LTR, KTC, Bridge (Hold due to, TA heel slide, TA KFO, TA june) Side bilateral Resistance AROM: BLEs over 55cm tball/feet on table home Equipment Used trialed in PT for LS and hip mobillty in am Reps/Minutes 15-20 reps each Comments cued level pelvis with TA fac needed for spinal comfort . isometric Supine Exercise Name SL hip flex w/DF Side bilateral Reps/Minutes 30 sec x2 each side Comments cues core and gentle pressure with breath Other Exercises self STms Other Exercise Name ES, glut region at wall Equipment Used tennis ball in pillow case Comments instruction Therapeutic Activity Therapeutic Activity LOg Roll Technique Reps/Minutes 1 reps Comments cued knees with shlds with TA support log roll onto side with UE support for trunk right to sitting- better decreased back compensation. Self-Care/Home Management Treatment Education Patient Education Home Exercise Program,Joint Protection,Pain Management, Posture,Safety Other Education Education for PPT and TA draw in with breath during ther ex for spinal stability. Self STMs using tennis ball on wall for decreased low back tension. Physical Therapy Assessment Goals strength Short Term Goal (STG Pt will demonstrate independence w/HEP by being able to ) perform with no more than min cues. STG Duration achieved advacning as able Group Home Goal (LTG) pt will score at least 4+/5 on all BLE MMT and at least 3/5 LPM all planes to show improved strength in order to return to have dec pain w/high level activities. 12/17-improving LTG Duration 02/22 activity Short Term Goal (STG Pt will be able to sleep through the night w/o inc pain ) in back or leg pain 12/17-wakes up at 4 am now and has to shift around; first thing in the AM still hard STG Duration 12/26 Sas Programmer Goal (LTG) Pt will be able to hike, play tennis, do yard work and other heavy work w/o back or leg pain greater than 2/10 12/17-3 mile hike w/hills and improved pain, yard work - 08/30; hasn't played tennis recently d/t dec movement LTG Duration 02/23 Assessment Summary Assessment Pt improved core facilitation for spinal alignment during exercises today, provided cuing for breath importance. Cues for not providing over resistance during isometric hip flexion. Physical Therapy Plan Frequency and Duration Frequency of 2x/Week Treatment Duration of 12 treatment (weeks) Plan of Care Start 11/25/24 Date Plan of Care End 02/23/25 Date Therapeutic Interventions Therapeutic Balance Training,Home Exercise Program,Joint Interventions Mobilizations,Manual Therapy,Neuromuscular Re-education ,Patient/Caregiver Education,Self-Care/Home Management, Soft Tissue Mobilization,Taping,Therapeutic Activities, Therapeutic Exercises Modalities Cold Pack/Ice Massage,Electric Stimulation,Hot Packs, Infrared Therapy,Ultrasound Next Visit Focus/Plan Next Note Type Treatment Note Next Visit Plan cont to work on hip and pelvis and lumbar spine, advance exercises as able
--- NOTE | 2025-01-06 11:18 | PT.OPPN ---
Current Diagnoses Other chronic pain (01/06/25) Low back pain, unspecified (01/06/25) Physical Therapy Progress Note PT OP: Lower Back/Lower Extremity Start: 11/25/24 10:13 Freq: Status: Active Protocol: Document 01/06/25 08:43 [facility] (Rec: 01/06/25 09:53 [facility] [id number]) Out-Patient Physical Therapy Visit Information Visit Information Visit Type Progress Note Visit Start Time 09:05 Visit Stop Time 09:45 Visit Number 10 Number of AIR QUALITY TECHNICIAN Visits 0 Progress Note Due 02/05/25 OP-PT Subjective Patient Comments Patient Comments Pt reports did the hike and it felt better. Sees pain management in [facility] on sunday. Posture Evaluation [facility] Postural Classification System Elbow Flexion Test 2 Lumbar Protective 4 Mechanism Left AP Lumbar Protective 4 Mechanism Right AP Lumbar Protective 3 Mechanism Left PA Lumbar Protective 2 Mechanism Right PA Hip Strength Hip Manual Muscle Testing Right Flexion (L2) 4+ Good+ Extension (S1) 4+ Good+ Abduction 5 Normal Adduction 5 Normal External Rotation 5 Normal Internal Rotation 5 Normal Left Flexion (L2) 4+ Good+ Extension (S1) 4+ Good+ Abduction 4+ Good+ Adduction 4+ Good+ External Rotation 5 Normal Internal Rotation 5 Normal Knee Strength Knee Manual Muscle Testing Right Flexion (S2) 5 Normal Extension (L3) 5 Normal Left Flexion (S2) 5 Normal Extension (L3) 5 Normal Therapeutic Exercises Standing Exercises clock taps Side bilateral Reps/Minutes 8 ea Comments cues bend knee lunge Standing Exercise fwd walk Name Side bilateral Reps/Minutes 20ftx4 Other Exercises SB Side bilateral Reps/Minutes 4 stopped d/t pain Comments quadruped cat cow Reps/Minutes 10 Comments cues for coodination of motion-stopped d/t pain lillian pose Other Exercise Name 1. fwd 2. lat Side bilateral Reps/Minutes 30 sec ea Comments cues deep breaths hip abd Other Exercise Name quadruped Side bilateral Reps/Minutes 10 Comments cues neutral spine hip ext Other Exercise Name quadruped Side bilateral Reps/Minutes 15 Comments cues neutral spine Manual Therapy Treatment Consent Patient gave verbal Yes consent for manual treatment Soft Tissue Mobilization Lumbar Body Location L ES & QL Mobilization Type Rolling Intensity/Depth Moderate Body Position Prone Joint Mobilizations lumbar Comments PA L2-5 w/R knee flex sacrum Comments L cadual prone w/knee flex innominate Comments L caudal w/ knee flex Physical Therapy Assessment Goals strength Short Term Goal (STG Pt will demonstrate independence w/HEP by being able to ) perform with no more than min cues. STG Duration achieved advacning as able Prison Goal (LTG) pt will score at least 4+/5 on all BLE MMT and at least 3/5 LPM all planes to show improved strength in order to return to have dec pain w/high level activities. 12/17-improving 01/06-mostly achieved except all LPM LTG Duration 02/22 activity Short Term Goal (STG Pt will be able to sleep through the night w/o inc pain ) in back or leg pain 12/17-wakes up at 4 am now and has to shift around; first thing in the AM still hard 01/06-seems improved, has bad day now and then where has to take advils but not happening as often, when wakes up to go to the bathroom, sore STG Duration 12/26 Monotype Setter Goal (LTG) Pt will be able to hike, play tennis, do yard work and other heavy work w/o back or leg pain greater than 2/10 12/17-3 mile hike w/hills and improved pain, yard work - 08/30; hasn't played tennis recently d/t dec movement 01/06-hiking feels better, hasn't tried tennis, w/work around the house/yard 06/30, certain motions avoiding still LTG Duration 02/23 Assessment Summary Assessment Pt making good progress w/strength and is starting to hike again. He has had some dec in pain but slowly so far. He would benefit from cont PT to work on pain and mobility. Physical Therapy Plan Frequency and Duration Frequency of 2x/Week Treatment Duration of 12 treatment (weeks) Plan of Care Start 11/25/24 Date Plan of Care End 02/23/25 Date Therapeutic Interventions Therapeutic Balance Training,Home Exercise Program,Joint Interventions Mobilizations,Manual Therapy,Neuromuscular Re-education ,Patient/Caregiver Education,Self-Care/Home Management, Soft Tissue Mobilization,Taping,Therapeutic Activities, Therapeutic Exercises Modalities Cold Pack/Ice Massage,Electric Stimulation,Hot Packs, Infrared Therapy,Ultrasound Next Visit Focus/Plan Next Note Type Treatment Note Next Visit Plan cont to work on hip and pelvis and lumbar spine, advance exercises as able
--- NOTE | 2025-01-08 18:04 | PT.OTN ---
Current Diagnoses Other chronic pain (01/08/25) Low back pain, unspecified (01/08/25) Physical Therapy Treatment Note PT OP: Lower Back/Lower Extremity Start: 11/25/24 10:13 Freq: Status: Active Protocol: Document 01/08/25 14:35 [facility] (Rec: 01/08/25 15:20 [facility] [id number]) Out-Patient Physical Therapy Visit Information Visit Information Visit Type Treatment Note Visit Start Time 14:36 Visit Stop Time 15:18 Visit Number 11 Number of DIRECTOR TEEN POST Visits 1 Progress Note Due 02/05/25 OP-PT Subjective Patient Comments Patient Comments Patient reports he is little better, played tennis, but certain mvts moving to the left gets stabbing pain, lateral L lower LE and dull pain in L hip. Patient reports the L LE feels tight, but not nerve pain start of session L HS lacking 41 deg R 30 AROM measured 90/90 position Therapeutic Exercises Supine Exercises stretch Supine Exercise Name hamstring HEP Side bilateral Reps/Minutes 60 sec ea Comments verbal cues Standing Exercises sit to stand Standing Exercise sit to stand raised seat height Name Side bilateral Reps/Minutes 10 Comments Pt ed self tactile cues for hip hinge calf stretches Standing Exercise Soleus and gastroc on stairs Name Reps/Minutes 60 sec x2 each stretch Comments verbal cues monitored for area of discomfort Manual Therapy Treatment Consent Patient gave verbal Yes consent for manual treatment Soft Tissue Mobilization illiopsoas Body Location L Mobilization Type Cross-Friction,Rolling Intensity/Depth Moderate Body Position Hooklying LS/glute Body Location glute/piriformis L Mobilization Type Rolling,Sustained Pressure Intensity/Depth Moderate Body Position Sidelying Taping LS to lower thoracic Comments I strips along paraspinals and horizontal 2 I strips across painful area Manual Techniques MET Type R AI L PI in hooklying L LE in ER Reps/Duration 6 X 6 sec for R AI L PI and pubic shot gun Physical Therapy Assessment Goals strength Short Term Goal (STG Pt will demonstrate independence w/HEP by being able to ) perform with no more than min cues. STG Duration achieved advacning as able Environmental Monitoring Technician Goal (LTG) pt will score at least 4+/5 on all BLE MMT and at least 3/5 LPM all planes to show improved strength in order to return to have dec pain w/high level activities. 12/17-improving 01/06-mostly achieved except all LPM LTG Duration 11/2 activity Short Term Goal (STG Pt will be able to sleep through the night w/o inc pain ) in back or leg pain 12/17-wakes up at 4 am now and has to shift around; first thing in the AM still hard 01/06-seems improved, has bad day now and then where has to take advils but not happening as often, when wakes up to go to the bathroom, sore STG Duration 12/26 Fdc Goal (LTG) Pt will be able to hike, play tennis, do yard work and other heavy work w/o back or leg pain greater than 2/10 12/17-3 mile hike w/hills and improved pain, yard work - 08/30; hasn't played tennis recently d/t dec movement 01/06-hiking feels better, hasn't tried tennis, w/work around the house/yard 06/30, certain motions avoiding still LTG Duration 02/23 Assessment Summary Assessment Decreased HS strength impacting ability to avoid PPT with stand to sit and squats. HS stretch added to HEP and review of sit to stand ( raised seat height) with hip hinge this session with good return demonstration. Physical Therapy Plan Frequency and Duration Frequency of 2x/Week Treatment Duration of 12 treatment (weeks) Plan of Care Start 11/25/24 Date Plan of Care End 02/23/25 Date Next Visit Focus/Plan Next Note Type Treatment Note Next Visit Plan cont to work on hip and pelvis and lumbar spine, advance exercises as able
--- NOTE | 2025-01-13 10:40 | PT.OTN ---
Current Diagnoses Other chronic pain (01/13/25) Low back pain, unspecified (01/13/25) Physical Therapy Treatment Note PT OP: Lower Back/Lower Extremity Start: 11/25/24 10:13 Freq: Status: Active Protocol: Document 01/13/25 09:50 AB (Rec: 01/13/25 10:40 AB [id number]) Out-Patient Physical Therapy Visit Information Visit Information Visit Type Treatment Note Visit Start Time 09:50 Visit Stop Time 10:35 Visit Number 12 Number of TUBULAR STOCK GLASS BULB MACHINE FORMER Visits 2 Progress Note Due 02/05/25 OP-PT Subjective Patient Comments Patient Comments Patient reports he is the same, but is scheduled for cortisone shot, continues to have random pain and pain in the morning. Patient comments he twisted his L ankle during tennis. Therapeutic Exercises Supine Exercises stretch Supine Exercise Name hamstring HEP Side bilateral Reps/Minutes 60 sec x 2 L X 1 R LE Comments verbal cues Standing Exercises mini lift Standing Exercise No weight Name Reps/Minutes X 2 and X 5 Comments verbal and visual cues Heel raise on step Standing Exercise bilateralHEP Name Reps/Minutes X 10 each LE Comments Verbal and visual cues Forward T Side bilateral Comments X 5 R X 1 L to chair seat the X 3 to counter height then X 5 post MET Manual Therapy Treatment Consent Patient gave verbal Yes consent for manual treatment Soft Tissue Mobilization HS Body Location B Mobilization Type Cross-Friction,Instrument Assisted,Rolling Intensity/Depth Moderate Body Position Hooklying Comments w/active prone quad sets with cupping L Lumbar Body Location lumbar paraspinals Mobilization Type Cross-Friction,Strumming Intensity/Depth Superficial Body Position Hooklying LS/glute Body Location glute/piriformis L Mobilization Type Rolling,Sustained Pressure Intensity/Depth Moderate Body Position Sidelying Manual Techniques MET Type R AI L PI in hooklying L LE in ER Reps/Duration 6 X 6 sec for R AI L PI and pubic shot gun Physical Therapy Assessment Goals strength Short Term Goal (STG Pt will demonstrate independence w/HEP by being able to ) perform with no more than min cues. STG Duration achieved advacning as able [facility] Goal (LTG) pt will score at least 4+/5 on all BLE MMT and at least 3/5 LPM all planes to show improved strength in order to return to have dec pain w/high level activities. 12/17-improving 01/06-mostly achieved except all LPM LTG Duration 11 activity Short Term Goal (STG Pt will be able to sleep through the night w/o inc pain ) in back or leg pain 12/17-wakes up at 4 am now and has to shift around; first thing in the AM still hard 01/06-seems improved, has bad day now and then where has to take advils but not happening as often, when wakes up to go to the bathroom, sore STG Duration 12/26 Research Hydrologist Goal (LTG) Pt will be able to hike, play tennis, do yard work and other heavy work w/o back or leg pain greater than 2/10 12/17-3 mile hike w/hills and improved pain, yard work - 08/30; hasn't played tennis recently d/t dec movement 01/06-hiking feels better, hasn't tried tennis, w/work around the house/yard 06/30, certain motions avoiding still LTG Duration 02/23 Assessment Summary Assessment R HS lacking 20 deg 90/90 position AROM L HS lacking 35 deg post manual this session. Patient able to perform fwd T to counter height with decreased pain post MET. Patient rates pain 06/02 end of session. Physical Therapy Plan Frequency and Duration Frequency of 2x/Week Treatment Duration of 12 treatment (weeks) Plan of Care Start 11/25/24 Date Plan of Care End 02/23/25 Date Next Visit Focus/Plan Next Note Type Treatment Note Next Visit Plan cont to work on hip and pelvis and lumbar spine, advance exercises as able
--- NOTE | 2025-01-15 10:46 | PT.OTN ---
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 Patient rates pain 1/10 start of session. Patient scoots rather than rolling during sit to supine with reports of sharp pain on each scoot. Therapeutic Exercises Supine Exercises sciatic nerve glide Supine Exercise Name knee flex and ext from hooklying Side left Reps/Minutes X 10 Comments verbal cues breathing from diaphragm in mod rest pos Supine Exercise Name Mod restorative pose Reps/Minutes 3 Comments verbal cues stretch Supine Exercise Name hamstring HEP Side bilateral Reps/Minutes 60 sec L LE post initial trials of 5-10 sec X 2 Comments verbal cues piriformis stretch Supine Exercise Name HEP Side bilateral Reps/Minutes 60 sec X 1 Comments verbal cues to follow by knee to chest mvt as if donning socks Therapeutic Activity Therapeutic Activity wake up routine Comments Review of ex and discussion of breathing from diaphragm with LE's under pillows followed by HS stretch then trying to put on socks in hooklying vs seated. LOg Roll Technique Comments Review 15 min VC for timing, LE positioning, alignment, multiple trials from L and R, VC for breathing. additional cues throughout session Manual Therapy Treatment Soft Tissue Mobilization HS Body Location B Mobilization Type Cross-Friction,Instrument Assisted,Rolling Intensity/Depth Moderate Body Position Hooklying Comments w/active prone quad sets with cupping L Lumbar Body Location lumbar paraspinals Mobilization Type Cross-Friction,Strumming Intensity/Depth Superficial Body Position Hooklying Manual Techniques MET Type R AI L PI in hooklying L LE in ER Reps/Duration 6 X 6 sec for R AI L PI and pubic shot gun Physical Therapy Assessment Goals strength Short Term Goal (STG Pt will demonstrate independence w/HEP by being able to ) perform with no more than min cues. STG Duration achieved advacning as able Desktop Support Consultant Goal (LTG) pt will score at least 4+/5 on all BLE MMT and at least 3/5 LPM all planes to show improved strength in order to return to have dec pain w/high level activities. 12/17-improving 01/06-mostly achieved except all LPM LTG Duration 02/22 activity Short Term Goal (STG Pt will be able to sleep through the night w/o inc pain ) in back or leg pain 12/17-wakes up at 4 am now and has to shift around; first thing in the AM still hard 01/06-seems improved, has bad day now and then where has to take advils but not happening as often, when wakes up to go to the bathroom, sore STG Duration 12/26 [facility] Goal (LTG) Pt will be able to hike, play tennis, do yard work and other heavy work w/o back or leg pain greater than 2/10 12/17-3 mile hike w/hills and improved pain, yard work - 08/30; hasn't played tennis recently d/t dec movement 01/06-hiking feels better, hasn't tried tennis, w/work around the house/yard 06/30, certain motions avoiding still LTG Duration 02/23 Assessment Summary Assessment Increased verbal cues for supine to and from sit with log roll and patient ed importance of scooting in hooklying vs scooting during a roll. HS length continues to be significantly limited this day at lacking 48 deg, visually noted improvement and inc paz to HS stretch post nerve glide. Physical Therapy Plan Next Visit Focus/Plan Next Note Type Treatment Note Next Visit Plan cont to work on hip and pelvis and lumbar spine, advance exercises as able
--- NOTE | 2025-02-17 13:02 | PT.OPDS ---
Current Diagnoses Other chronic pain (01/15/25) Low back pain, unspecified (01/15/25) Visit Care Team Role Provider Type Jitendra Chaney DO Attending Provider Non-Staff Primary Care Provider Referring Provider Specialty: Internal Medicine Address: [address] [place], [address] Email: Visit Number Visit Number 13 Discharge Summary PT OP: Lower Back/Lower Extremity Start: 11/25/24 10:13 Freq: Status: Active Protocol: Document 02/17/25 12:29 [facility] (Rec: 02/17/25 13:02 [facility] [id number]) Out-Patient Physical Therapy Visit Information Visit Information Visit Type Discharge Summary Physical Therapy Assessment Goals strength Short Term Goal (STG Pt will demonstrate independence w/HEP by being able to ) perform with no more than min cues. STG Duration achieved advacning as able Group Home Goal (LTG) pt will score at least 4+/5 on all BLE MMT and at least 3/5 LPM all planes to show improved strength in order to return to have dec pain w/high level activities. 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 Physical Therapy Plan Discharge Physical Therapy Discharge Reasons Patient Request
== END 2025-02-18 09:47 | disposition home or self-care (01) ==
LOC: PHYS 09:45
PROVIDERS: PCP Student in an Organized Health Care Education/Training Program; Referring Provider Student in an Organized Health Care Education/Training Program; Visit Provider Student in an Organized Health Care Education/Training Program
DX: M54.50 Low back pain, unspecified (principal); G89.29 Other chronic pain
CPT/HCPCS: 97110; 97140; 97162; 97530; 97535